=== PATIENT | female | born 1980 | race Caucasian/White ===

== ENCOUNTER 2017-10-02 15:31 | Emergency (ER) | payer SELFPAY ==
[~2017-10-02] VITALS: Ht 170.2 cm; Wt 105.3 kg
[2017-10-02 15:40] VITALS: BP 179/93; PULSE 103; RESP 16; TEMP 97.9; O2SAT 97
--- NOTE | 2017-10-02 16:56 | PD ---
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 She denies any chest pains, shortness of breath, dizziness, or any other symptoms. She had taken tests at home and was negative. Modifying Factors: None Associated Signs & Symptoms: Heavy vaginal bleeding Risk Factors: History of irregular menses PFSH Past Medical History Medical other: Yes (PCOS) ?: Unknown LMP: PCOS, STATES SPOTTING X 2 WEEKS Past Surgical History Other Surgery: Yes (ABLATION) Social History Alcohol Use: No Tobacco Use: No Substance Use: No Allergies-Medications (Allergen,Severity, Reaction): Coded Allergies: No Known Allergies (Verified Allergy, Unknown, 10/02/17) Reported Meds & Prescriptions Reported Meds & Active Scripts Active No Active Prescriptions or Reported Medications Review of Systems Except as stated in HPI: all other systems reviewed are Neg Physical Exam Narrative GENERAL: Well-developed young female patient currently in mild distress. Awake and oriented 3. SKIN: Focused skin assessment warm/dry. HEAD: Atraumatic. Normocephalic. EYES: Pupils equal and round. No scleral icterus. No injection or drainage. ENT: No nasal bleeding or discharge. Mucous membranes pink and moist. NECK: Trachea midline. No JVD. CARDIOVASCULAR: Regular rate and rhythm. No murmur appreciated. RESPIRATORY: No accessory muscle use. Clear to auscultation. Breath sounds equal bilaterally. GASTROINTESTINAL: Abdomen soft, non-tender, nondistended. Hepatic and splenic margins not palpable. MUSCULOSKELETAL: No obvious deformities. No clubbing. No cyanosis. No edema. NEUROLOGICAL: Awake and alert. No obvious cranial nerve deficits. Motor grossly within normal limits. Normal speech. PSYCHIATRIC: Appropriate mood and affect; insight and judgment normal. Data Data Last Documented VS Vital Signs Date Time Temp Pulse Resp B/P (MAP) Pulse Ox O2 Delivery O2 Flow Rate FiO2 10/02/17 15:40 97.9 103 16 179/93 (121) 97 Orders Orders Complete Blood Count With Diff (10/02/17 16:53) Beta Hcg (Quant/Titer) (10/02/17 16:53) Labs Laboratory Tests Test 10/02/17 17:15 White Blood Count 10.5 TH/MM3 Red Blood Count 5.00 MIL/MM3 Hemoglobin 14.3 GM/DL Hematocrit 43.1 % Mean Corpuscular Volume 86.1 FL Mean Corpuscular Hemoglobin 28.6 PG Mean Corpuscular Hemoglobin Concent 33.2 % Red Cell Distribution Width 11.7 % Platelet Count 383 TH/MM3 Mean Platelet Volume 7.3 FL Neutrophils (%) (Auto) 66.4 % Lymphocytes (%) (Auto) 25.8 % Monocytes (%) (Auto) 3.8 % Eosinophils (%) (Auto) 2.3 % Basophils (%) (Auto) 1.7 % Neutrophils # (Auto) 7.0 TH/MM3 Lymphocytes # (Auto) 2.7 TH/MM3 Monocytes # (Auto) 0.4 TH/MM3 Eosinophils # (Auto) 0.2 TH/MM3 Basophils # (Auto) 0.2 TH/MM3 CBC Comment DIFF FINAL Differential Comment Human Chorionic Gonadotropin, Quant LESS THAN 1 MIU/ML MDM Medical Decision Making Medical Screen Exam Complete: Yes Emergency Medical Condition: Yes Medical Record Reviewed: Yes Interpretation(s) Laboratory Tests Test 10/02/17 17:15 Differential Diagnosis Dysfunctional uterine bleeding versus threatened AB Narrative Course Lab work shows no signs of anemia. She is not . At this point, vital signs are stable my plan would be through give her OCPs and have her follow-up with PBX MANAGER. Return for any worsening in bleeding, or new issues as needed. The plan has been discussed with the patient and she states understanding. Diagnosis Primary Impression: Dysfunctional uterine bleeding Med/Other Pt SpecificInfo: Prescription(s) given Scripts Norethindrone-Ethinyl Estradiol (Ortho-Novum ) 1-35 Mg-Mcg Tab 1 TAB PO DAILY for Control, #1 PACK 0 Refills Prov: Mary Jane Workman MD 10/02/17 Disposition: 01 DISCHARGE HOME Condition: Stable Mary Jane Workman MD Oct 02, 2017 16:56
[2017-10-02 17:24] LABS: BASOPHIL # 0.2 TH/MM3 (0-0.2); BASOPHIL % 1.7 % (0.0-2.0); EOSINOPHIL # 0.2 TH/MM3 (0-0.4); EOSINOPHIL % 2.3 % (0.0-4.0); HEMATOCRIT 43.1 % (35.0-46.0); HEMOGLOBIN 14.3 GM/DL (11.6-15.3); LYMPH % 25.8 % (9.0-44.0); LYMPHOCYTE # 2.7 TH/MM3 (1.0-4.8); MEAN CELL VOLUME 86.1 FL (80.0-100.0); MEAN CORPUSCULAR HEMOGLOBIN 28.6 PG (27.0-34.0); MEAN CORPUSCULAR HGB CONC 33.2 % (32.0-36.0); MEAN PLATELET VOLUME 7.3 FL (7.0-11.0); MONO % 3.8 % (0.0-8.0); MONOCYTE # 0.4 TH/MM3 (0-0.9); NEUT % 66.4 % (16.0-70.0); PLATELET COUNT 383 TH/MM3 (150-450); RED CELL DISTRIBUTION WIDTH 11.7 % (11.6-17.2); WHITE BLOOD COUNT 10.5 TH/MM3 (4.0-11.0)
[2017-10-02] MEDS ORDERED: ORTH1TAB PO (18:11)
== END 2017-10-02 18:29 | disposition home or self-care (01) ==
LOC: PHED 15:31
DX: N93.8 Other specified abnormal uterine and vaginal bleeding (principal); E28.2 Polycystic ovarian syndrome
CPT/HCPCS: 84702; 85025; 99283